=== PATIENT | female | born 1975 | race Caucasian/White ===

== ENCOUNTER 2023-06-15 05:43 | Day surgery (SDC) | payer OTHER ==
[2023-06-15 06:20] LABS: HCG URINE TEST NEGATIVE (NEGATIVE)
[2023-06-15] MEDS ORDERED: Lactated Ringers 1,000 ML IV SCH (06:30)
[2023-06-15] MEDS ORDERED: DIPRIVAN 200 MG/20 ML IV ONE ×2 (07:00→07:10)
[2023-06-15] MEDS ORDERED: Versed 2 MG/2 ML Injection ONE (07:00)
[2023-06-15 07:31] VITALS: TEMP 98
[2023-06-15 07:33] VITALS: O2SAT 100
[2023-06-15 07:35] VITALS: RESP 18
[2023-06-15 07:45] VITALS: BP 109/69; PULSE 56
--- NOTE | 2023-06-15 08:05 | OP ---
SURGERY DATE/TIME: 06/15/2023 0703 PREOPERATIVE DIAGNOSIS: Screening exam. POSTOPERATIVE DIAGNOSIS: Normal colon. PROCEDURE: Colonoscopy. SURGEON: Dr. Charles. ANESTHESIA: Medications given by anesthesia department. HISTORY: The patient is a 48-year-old white female presenting now for screening colonoscopy. The patient was appraised of the risks of the procedure including the risk of perforation, phlebitis, untoward reaction to medication, bleeding and missed lesions. The patient verbalized her understanding and desired to have the procedure performed. DESCRIPTION OF PROCEDURE: The patient was given the medications by the anesthesia department. She had continuous pulse oximetry, ECG monitoring and intermittent blood pressure monitoring during the examination. She was placed in the left lateral decubitus position. A digital rectal examination was performed and revealed normal anal sphincter tone and no masses. The flexible Olympus pediatric colonoscope was used to intubate the rectum. A view of the colon was developed sequentially to the cecum. Upon insertion and withdrawal, including a retroflex view in the rectum, no mucosal lesions were encountered. The scope was removed from the patient who tolerated the procedure well and was sent back to OP recovery in good condition. The prep was noted to be fair to good.
== END 2023-06-15 07:43 | disposition home or self-care (01) ==
LOC: SDC 05:43
PROVIDERS: ATTEND Family Medicine
DX: Z12.11 Encounter for screening for malignant neoplasm of colon (principal)
CPT/HCPCS: 81025; J2250; J2704